=== PATIENT | female | born 1945 | race Caucasian/White ===

== ENCOUNTER 2019-11-22 15:26 | Emergency (ER) | payer MEDICARE, SELFPAY ==
--- NOTE | 2019-11-22 15:34 | ED.WOUNDLAC ---
HPI - Wound/Laceration General Chief Complaint: Wound/Laceration Stated Complaint: cut to left palm Time Seen by Provider: 11/22/19 15:40 Source: patient and RN notes reviewed Mode of arrival: ambulatory Limitations: no limitations History of Present Illness HPI narrative: 74-year female presents concern for lacerations to her left hand. Reports just prior to arrival she was using a kitchen knife when she sustained 2 small lacerations to the base of the palmar aspect of her left hand. Reports she is up-to-date on her vaccinations Related Data Home Medications Medication Instructions Recorded Confirmed albuterol sulfate [ProAir HFA] 2 puff INHALATION QID PRN 11/22/19 11/22/19 citalopram 20 mg PO DAILY 11/22/19 11/22/19 montelukast [Singulair] 10 mg PO DAILY 11/22/19 11/22/19 simvastatin 40 mg PO DAILY 11/22/19 11/22/19 Allergies Allergy/AdvReac Type Severity Reaction Status Date / Time Penicillins Allergy Rash Verified 11/22/19 15:52 Sulfa (Sulfonamide Allergy Rash Verified 11/22/19 15:52 Antibiotics) Review of Systems Review of Systems: Narrative: CONSTITUTIONAL: Denies malaise, chills, sweats, or fever. SKIN: Reports laceration to the palmar aspect of her left hand MUSCULOSKELETAL: Musculoskeletal pain NEUROLOGIC: Denies numbness, weakness. All systems reviewed & are unremarkable except as noted in HPI and below PMFSH Comments At time of signature, agree with nursing past medical, surgical, social and family history. There is no relevant family history pertinent to the presenting complaint Exam Narrative: Exam Narrative: GENERAL: Well-appearing, well-nourished, and in no acute distress. HEAD: Normocephalic EYES: PERRLA, conjunctivae clear NECK: Supple. CHEST: Speaks in full sentences. No respiratory distress. HEART: Regular rate and rhythm. Normal and equal peripheral pulses. EXTREMITIES: Left hand and digits of hand have normal strength and sensation. 5/5 strength with digit flexion, extension. Range of motion normal. No clubbing, cyanosis, or edema noted. No tenderness. Normal digital cascade with flexion of fingers, median, ulnar and radial nerve intact. Normal sensation of each side of finger. Can perform 'okay' sign, 'cross over finger test of index and middle fingers' and 'thumbs up' sign. No scissoring. Normal thumb opposition. Good capillary refill and radial pulse. Distal capillary refill <3 seconds. SKIN: Warn, dry, pink. No rash. 2 simple linear lacerations approximately 1 mm noted to the base of the palmar aspect of left hand, superficial NEURO: Alert and oriented x3. PSYCH: Normal mood and affect Course Course Emergency Course: Patient is aware of diagnosis, understands and agrees to treatment plan. Anticipatory guidance given. Patient agrees to follow-up as directed and is aware of reasons to seek care at the emergency department. Portions of this record may have been created with voice recognition software Vital Signs Vital signs: Vital Signs Temperature 98.3 F 11/22/19 15:36 Pulse Rate 93 11/22/19 15:36 Respiratory Rate 16 11/22/19 15:36 Blood Pressure 146/73 H 11/22/19 15:36 Pulse Oximetry 98 11/22/19 15:36 Temperature 98.3 F 11/22/19 15:36 Pulse Rate 93 11/22/19 15:36 Respiratory Rate 16 11/22/19 15:36 Blood Pressure 146/73 H 11/22/19 15:36 Pulse Oximetry 98 11/22/19 15:36 Reviewed. Procedures Laceration Laceration 1: Date: 11/22/19 Time: 15:55 Site: hand Side (If applicable): left Size (cm): 1 Description: linear Depth: simple, single layer Local Anesthetic: none Pre-repair: wound explored and irrigated ====== Skin Level ====== Skin layer closed with: dermabond ====== Subcutaneous Layer ====== ====== Muscle Layer ====== ====== Tendon Layer ====== Laceration 2: Date: 11/22/19 Time: 15:55 Site: hand Side (If applicable):
[2019-11-22 15:36] VITALS: BP 146/73; PULSE 93; RESP 16; TEMP 36.8; O2SAT 98
== END 2019-11-22 16:27 | disposition home or self-care (01) ==
PROVIDERS: Emergency Provider Nurse Practitioner; PCP Internal Medicine Geriatric Medicine
DX: S61.412A Laceration without foreign body of left hand, initial encounter (principal); W26.0XXA Contact with knife, initial encounter; E78.00 Pure hypercholesterolemia, unspecified; J45.909 Unspecified asthma, uncomplicated; K21.9 Gastro-esophageal reflux disease without esophagitis; F32.9 Major depressive disorder, single episode, unspecified; G24.3 Spasmodic torticollis
CPT/HCPCS: 12001; 99212; G0463